=== PATIENT | female | born 1975 | race Caucasian/White ===

== ENCOUNTER 2017-02-22 05:51 | Day surgery (SDC) | payer OTHER ==
[2017-02-21 16:17] VITALS: BMI 31.0
[~2017-02-22] VITALS: Ht 157.5 cm; Wt 73.9 kg
[2017-02-22] VITALS (14 sets, daily range): BP systolic 88–117; BP diastolic 38–56; PULSE 72–89; RESP 15–21; Ht 157.5 cm; Wt 73.9 kg
[~2017-02-22 05:51] MED LIST: HYDROCODONE PO; LACTATED RINGER'S 1,000 ML IV* SCH
[2017-02-22] MEDS ORDERED: BUPIVACAINE 0.5%/EPI (SDV) 30 ML INJ ONE (07:07)
--- NOTE | 2017-02-22 07:29 | PREOPHP ---
DATE OF ADMISSION: 02/22/2017 REASON FOR ADMISSION: The patient is to be admitted tomorrow 02/22/2017 at 7:30 for laparoscopic bi lateral tubal ligation. HISTORY OF PRESENT ILLNESS: This is a 41-year-old female, 4, para 4, who has requested ster ilization on the basis of multiparity. The alternatives, methods of contraception, the benefits fro m the tubal ligation, the risks of the procedure, the possible complications as well as 1% failure r ate of the procedure itself were discussed at great length in the office. She was graphically shown what the tubal ligation implied. She was allowed to ask questions and all her questions were answe red to her satisfaction, and she signed the appropriate surgical informed consent. PAST MEDICAL HISTORY: The patient denies any medical problems including cardiovascular disease, hyp ertension, diabetes, renal disease, liver disease, thyroid disease, or neurological problems. ALLERGIES: SHE HAS NO KNOWN ALLERGIES. OBSTETRICAL HISTORY: The patient had 4 pregnancies that ended in 4 vaginal deliveries. FAMILY HISTORY: Noncontributory. REVIEW OF SYSTEMS: A 12-point review of systems is noncontributory. PHYSICAL EXAMINATION: GENERAL: Well-developed and nourished, in no distress, alert and oriented x3, with a height of 5 fe et 2 inches and a weight of 153 pounds. VITAL SIGNS: Showed temperature to be 98, blood pressure 102/64, respirations 16 per minute, pulse is 72 per minute, regular. HEENT: Within normal limits. Pupils are PERRLA. NECK: Supple. Thyroid is nonpalpable. There is no lymphadenopathy. BREASTS: Show no masses or lumps. LUNGS: Clear to percussion and auscultation. HEART: Normal sinus rhythm without a murmur. ABDOMEN: Soft with no organomegalies or hernias. PELVIC: Normal external genitalia. Vagina is normal. Cervix is normal without lesions. Bimanual exam: The uterus small, firm, in the midline. There are no adnexal masses present. EXTREMITIES: Within normal limits. NEUROLOGIC: Also normal. IMPRESSION: Multiparity. The patient desires sterilization PLAN: She is to be admitted for laparoscopic bilateral tubal ligation, possible laparotomy if nahum jackson, tomorrow 02/22/2017. Dictated By: APRIL LIRIANO/LUCÍA Conf#: [id number] [facility]#: [id number]
[2017-02-22] MEDS ORDERED: PROPOFOL 20 ML ONE (07:30)
[2017-02-22] MEDS ORDERED: METOCLOPRAMIDE 10 MG INJ ONE (07:30)
[2017-02-22] MEDS ORDERED: ROCURONIUM 50 MG INJ ONE (07:30)
[2017-02-22] MEDS ORDERED: MIDAZOLAM 1 MG/ML 2 ML INJ ONE (07:30)
[2017-02-22] MEDS ORDERED: KETOROLAC 30 MG INJ ONE (07:43)
[2017-02-22] MEDS ORDERED: CEFAZOLIN 1 GM INJ ONE (07:45)
[2017-02-22] MEDS ORDERED: HYDROmorphONE 2 MG/ML SYG ONE (07:47)
[2017-02-22] MEDS ORDERED: OXYCODONE/ACETAMINOPHEN (5/325) TAB PO PRN ×4 (08:00→08:30)
[2017-02-22] MEDS ORDERED: ONDANSETRON 4 MG INJ IV PRN ×2 (08:00→08:30)
[2017-02-22] MEDS ORDERED: MEPERIDINE 25 MG INJ IV PRN (08:00)
[2017-02-22] MEDS ORDERED: METOCLOPRAMIDE 10 MG INJ IV PRN (08:00)
[2017-02-22] MEDS ORDERED: HYDROmorphONE (0.2 MG/ML) 10ML SYG IV PRN ×3 (08:00)
[2017-02-22] MEDS ORDERED: DIPHENHYDRAMINE 50 MG INJ IV PRN (08:00)
[2017-02-22] MEDS ORDERED: ROPIVACAINE 0.5 % 30 ML VIAL ONE (08:12)
[2017-02-22] MEDS ORDERED: GLYCOPYRROLATE 0.4 MG INJ ONE (08:15)
[2017-02-22] MEDS ORDERED: NEOSTIGMINE 3 MG/3 ML SYRINGE ONE (08:15)
--- NOTE | 2017-02-22 08:24 | PD.PPDC ---
CHEMICAL PROCESS OPERATOR Discharge Instruction Diagnosis Final Diagnosis: Multiparity. Condition Patient Condition: Good Diet Diet: Resume Regular Diet Activity/Restrictions Activity: Normal Activity May Shower Restrictions: No Lifting No Sexual Activity Nothing in the Vagina No Arispe No Tampons, douche Wound/Drain Care Instructions Wound/Drain Care Instructions: Keep clean and dry Follow-up Follow-up with Physician: 1, Week/Weeks Return to clinic for EXPERIMENTAL MACHINIST Instructions: Fever greater than 101 Excessive Vaginal Bleeding Unable to tolerate diet Surgical Instructions: Incisional Drainage Incisional Redness APRIL CORREA MD Feb 22, 2017 08:24
[2017-02-22] MEDS ORDERED: LACTATED RINGER'S 1,000 ML IV SCH (08:26)
[2017-02-22] MEDS ORDERED: ACETAMINOPHEN 325 MG TAB PO PRN (08:30)
[2017-02-22] MEDS ORDERED: morphine 2 MG INJ IV PRN (08:30)
[2017-02-22] MEDS ORDERED: IBUPROFEN 600 MG TAB PO PRN (08:30)
[2017-02-22] MEDS ORDERED: EPHEDrine SULFATE 50 MG/5 ML SYG ONE (08:49)
--- NOTE | 2017-02-22 09:59 | OPR ---
DATE OF OPERATION: 02/22/2017 PREOPERATIVE DIAGNOSIS: Multiparity. POSTOPERATIVE DIAGNOSES: Multiparity. OPERATION PERFORMED: Laparoscopic bilateral tubal ligation. SURGEON: April Horan MD ANESTHESIA: General. ANESTHESIOLOGIST: Lisset Olson MD SPECIMENS: None. COMPLICATIONS: None. ESTIMATED BLOOD LOSS: None. PROCEDURE: Laparoscopic bilateral tubal ligation. PROCEDURE AND FINDINGS: With the patient under general anesthesia, was lying on the table in the do rsal lithotomy position. Her abdomen, upper thighs, perineum, and vagina were prepped with ChloraPr ep and after 3 minutes draped in the usual sterile fashion for this procedure. The bladder was cath eterized and emptied. She was draped in the usual sterile fashion. A small 5 mm incision was done at the level of the umbilicus. Through this incision and while we were tenting up the anterior wall , the Veress needle was inserted. Once the tip of the needle was inserted into the intraperitoneum by the hanging drop of saline technique, it was then connected to the CO2 insufflator. Good insuffl ation was obtained, and the needle was removed. A 5 mm trocar was passed in while we were tenting u p the anterior abdominal wall. Through this port, the laparoscope with the Endocamera was inserted. The patient was placed in Trendelenburg position. The pelvic organs were normal. A second port w as installed under direct vision in the hypogastric area with another 5 mm port. Through this secon d trocar, the Kleppinger clamp with the gyrus device at 35 bueno of current was inserted. The right tube was picked up and burned through and through in its mid portion 1.5 cm. The same was repeated on the contralateral side. There was no bleeding, no complications. Pictures were taken for docum entation. All the instruments were then removed from the patient's abdomen as well as much CO2 as p ossible. The incisions were infiltrated with 0.5% Marcaine with epinephrine, a total of 20 mL. The y were then closed with 4-0 Monocryl. Band-Aids were applied. The patient withstood the procedure well and was taken to recovery room with all vital signs stable. EBL was negligible. Needle, spong e, and instrument count at the end of the procedure was correct twice. Dictated By: APRIL LIRIANO/NTS Conf#: [id number] DID#: [id number]
== END 2017-02-22 11:10 | disposition home or self-care (01) ==
LOC: SDS 05:51
PROVIDERS: ATTEND Specialist
DX: Z30.2 Encounter for sterilization (principal)
CPT/HCPCS: 58670; 84703; 86850; 86900; 86901; J0690; J1170; J1885; J2175; J2250; J2710; J2765; J2795; Z7512; Z7610